=== PATIENT | female | born 1960 | race Caucasian/White ===

== ENCOUNTER → 2018-08-10 | Outpatient (CLI) | payer OTHER ==
--- NOTE | 2018-08-10 13:36 | RADIOLOGY REPORT (SQ) ---
EXAM DESCRIPTION: MRI RT UPPER JOINT WITHOUT COMPLETED DATE/TIME: 08/10/2018 12:04 pm REASON FOR STUDY: S42.201A UNSPECIFIED FRACTURE OF UPPER END OF RIGHT HUMERUS, INITIAL ENCOUN S42.20 1A UNSP FRACTURE OF UPPER END OF RIGHT HUMERUS, INIT COMPARISON: None. TECHNIQUE: Right shoulder images acquired and stored on PACS. Multiplanar imaging to include fat sen sitive sequences such as T1, water sensitive sequences such as FST2/STIR, cartilage sensitive sequenc es such as FSPD/gradient-echo sequences. LIMITATIONS: None. FINDINGS: BONE MARROW AND CORTEX: Edema associated with nondisplaced fracture of the surgical neck. There is a rim of high signal about 3 mm wide in the greater tuberosity attachment of the supraspina tus, series 6, image 7. JOINT OR BURSAL EFFUSION: Small glenohumeral joint effusion. Small amount of fluid in the sub deltoi d bursa. GLENO-HUMERAL ARTICULATION: Intact. Small loose body in the axillary recess ACROMION AND AC JOINT: Type 2 acromion. No down-sloping or distal spur. Sub-acromial space maintain ed. No significant AC joint arthropathy. ROTATOR CUFF AND INTERVAL: See above. Tendinosis in the supraspinatus with articular surface perfora tion but no full-thickness tear. No rotator interval tear. No rotator interval thickening to suggest adhesive capsulitis. LABRUM AND BICEPS LABRAL COMPLEX: Intact. No labral tear. Intra-articular long-head biceps tendon n ormal. Distal biceps in normal location in bicipital groove. REMAINDER OF LABRUM AND IGHL : No gross tear or paralabral cyst formation. Labral evaluation is less than optimal without joint distention. No thickening of IGHL to suggest adhesive capsulitis. PERIARTICULAR AND ADJACENT SOFT TISSUES: No masses or abnormal nodes. OTHER: No other significant finding. IMPRESSION: 1. Partial avulsion of the supraspinatus tendon insertion associated with Neer 1 part fracture of the surgical neck. 2. Tendinosis and articular surface perforation posterior supraspinatus. No full-thickness tear. TECHNICAL DOCUMENTATION: JOB ID: [id number] [employer]- All Rights Reserved Reading location - IP/workstation name: [email or web address]
== END ==
LOC: RAD 10:52
PROVIDERS: ATTEND Orthopaedic Surgery Sports Medicine
DX: S42.201A Unspecified fracture of upper end of right humerus, initial encounter for closed fracture (principal); X58.XXXA Exposure to other specified factors, initial encounter